=== PATIENT | female | born 1960 | race Two or more races ===

== ENCOUNTER 2019-05-19 10:17 | Inpatient (IN) | payer OTHER ==
[~2019-05-19] VITALS: Ht 154.9 cm; Wt 75.7 kg
[2019-05-27] MEDS ORDERED: VITAMIN D350000 UNIT PO (08:52)
[2019-05-28] MEDS ORDERED: CALCIUM 500 +1 EAC2 PO (09:23)
== END 2019-05-28 09:46 | disposition home or self-care (01) | DRG 627 ==
LOC: O/R 05-27 06:45 → SURG 05-27 08:15 → SURH 05-27 12:01
PROVIDERS: ADMIT Otolaryngology
PROC: 0GTN0ZZ Resection of Right Inferior Parathyroid Gland, Open Approach (ICD-10-PCS; principal; 2019-05-27 09:00)
DX: D35.1 Benign neoplasm of parathyroid gland (principal); E21.0 Primary hyperparathyroidism